=== PATIENT | female | born 2000 | race Caucasian/White ===

== ENCOUNTER 2019-04-23 11:20 | Emergency (ER) | payer OTHER ==
[2019-04-23 11:51] VITALS: BP 125/58
--- NOTE | 2019-04-23 12:34 | UC ---
Complaint Female HPI - HPI Summary HPI Summary: Pt presents with c/o of vaginal itching, thick white discharge, burning with urination, and mild redness to outer genitals X 4 days. Pt is sexually active and states that her and her partner use condoms for control. Pt used OTC antifungal, monistat X 1 day with little to no improvement. Has been using OTC outer antifungal cream and states symptoms improve with use of this. - History Of Current Complaint Chief Complaint: UCGU Stated Complaint: PERSONAL Time Seen by Provider: 04/23/19 12:05 Hx Obtained From: Patient Hx Last Menstrual Period: 04/09/19 ?: No Onset/Duration: Gradual Onset, Lasting Days, Still Present Timing: Constant Severity Initially: Mild Severity Currently: Moderate Pain Intensity: 0 Character: Burning Aggravating Factor(s): Urination Alleviating Factor(s): Meds - OTC topical antifungal Associated Signs And Symptoms: Positive: Vaginal Discharge - Risk Factors Ectopic Risk Factor: Negative Ovarian Torsion Risk Factor: Reproductive Age - Allergies/Home Medications Allergies/Adverse Reactions: Allergies Allergy/AdvReac Type Severity Reaction Status Date / Time amoxicillin Allergy Severe Hives Verified 04/23/19 11:48 PMH/Surg Hx/FS Hx/Imm Hx Previously Healthy: Yes - Surgical History Surgical History: None - Family History Known Family History: Positive: Cardiac Disease - Social History Occupation: Student Lives: With Family Alcohol Use: Occasionally Substance Use Type: None Smoking Status (MU): Never Smoked Tobacco Type: eCigarettes Have You Smoked in the Last Year: No - Immunization History Vaccination Up to Date: Yes Review of Systems All Other Systems Reviewed And Are Negative: Yes Constitutional: Positive: Negative Skin: Positive: Negative Eyes: Positive: Negative ENT: Positive: Negative Respiratory: Positive: Negative Cardiovascular: Positive: Negative Gastrointestinal: Positive: Negative Genitourinary: Positive: Vaginal/Penile Burning, Vaginal/Penile Itching, Vaginal /Penile Discharge, Vaginal/Penile Tenderness Motor: Positive: Negative Neurovascular: Positive: Negative Musculoskeletal: Positive: Negative Neurological: Positive: Negative Psychological: Positive: Negative Is Patient Immunocompromised?: No Physical Exam - Summary Physical Exam Summary: Pt declined vaginal exam and opted for self swab. Triage Information Reviewed: Yes Appearance: Well-Appearing Vital Signs: Initial Vital Signs Temp 97.8 F 04/23/19 11:48 Pulse 89 04/23/19 11:48 Resp 16 04/23/19 11:48 BP 125/58 04/23/19 11:48 Pulse Ox 100 04/23/19 11:48 Vital Signs Reviewed: Yes Eye Exam: Normal ENT Exam: Normal Dental Exam: Normal Neck exam: Normal Respiratory Exam: Normal Respiratory: Positive: No respiratory distress Cardiovascular Exam: Normal Abdominal Exam: Normal Abdomen Description: Positive: Nontender Musculoskeletal Exam: Normal Neurological Exam: Normal Psychological Exam: Normal Skin Exam: Normal Complaint Female Dx - Differential Dx/Diagnosis Differential Diagnosis/HQI/PQRI: Sexually Transmitted Disease Provider Diagnosis: Vaginitis Discharge - Sign-Out/Discharge Documenting (check all that apply): Patient Departure All imaging exams completed and their final reports reviewed: No Studies - Discharge Plan Condition: Stable Disposition: HOME Prescriptions: Fluconazole 150 MG TAB* [Diflucan 150 MG TAB*] 150 mg PO DAILY #3 tablet Patient Education Materials: Vaginitis (ED) Referrals: [facility] [Outside] - If Needed No Primary Care Phys,NOPCP [Primary Care Provider] - Additional Instructions: Please follow up with your PCP as needed. If your symptoms do not improve or they worse, please seek care at the closest ER as soon as possible. - Billing Disposition and Condition Condition: STABLE Disposition: Home
--- NOTE | 2019-04-25 07:12 | UC ---
- Progress Note Progress Note: Vaginal swab was positive for both gardnerella and priya. The medication initially prescribed, diflucan treated the priya. You need another medication , metronidazole to treat the gardnerella. Medication has been faxed to your pharmacy. If symptoms persist despite both medications recommend follow up with PCP or return to urgent care. Both are common infections in women and not considered sexually transmitted infections. Course/Dx - Diagnoses Provider Diagnoses: Vaginitis Discharge - Sign-Out/Discharge Documenting (check all that apply): Post-Discharge Follow Up All imaging exams completed and their final reports reviewed: No Studies - Discharge Plan Condition: Stable Disposition: HOME Prescriptions: Fluconazole 150 MG TAB* [Diflucan 150 MG TAB*] 150 mg PO DAILY #3 tablet metroNIDAZOLE [Flagyl 500 MG TAB] 500 mg PO BID #14 tablet Patient Education Materials: Vaginitis (ED) Referrals: [facility] [place] [facility] [Outside] - If Needed No Primary Care Phys,NOPCP [Primary Care Provider] - Additional Instructions: Please follow up with your PCP as needed. If your symptoms do not improve or they worse, please seek care at the closest ER as soon as possible. - Billing Disposition and Condition Condition: STABLE Disposition: Home
== END 2019-04-23 12:49 | disposition home or self-care (01) ==
LOC: UCCORT 11:20
DX: B37.3 Candidiasis of vulva and vagina (principal); N76.0 Acute vaginitis; B96.89 Other specified bacterial agents as the cause of diseases classified elsewhere; Z88.0 Allergy status to penicillin
CPT/HCPCS: 81003; 84702; 87086; 87480; 87510; 99202; G0463